=== PATIENT | female | born 2000 | race Caucasian/White ===

== ENCOUNTER 2024-05-07 03:22 | Inpatient (IN) | payer MEDICAID ==
[2024-05-07] MEDS ORDERED: Sodium Chloride 0.9% 20 ML SDV IV PRN (04:08)
[2024-05-07] MEDS ORDERED: Sodium Chloride 0.9% 2.5 ML Syringe FLUSH PRN (04:08)
[2024-05-07] MEDS ORDERED: Lidocaine 1% 50 ML MDV INJECT PRN (04:08)
[2024-05-07] MEDS ORDERED: Carboprost Tromethamine 250 MCG/1 mL Vial IM PRN (04:08)
[2024-05-07] MEDS ORDERED: Misoprostol 200 MCG Tab PO PRN (04:08)
[2024-05-07] MEDS ORDERED: Sodium Chloride 0.9% 10 ML Syringe FLUSH PRN (04:08)
[2024-05-07] MEDS ORDERED: Butorphanol 2 MG/ML SDV IVPUSH PRN (04:08)
[2024-05-07] MEDS ORDERED: Methylergonovine 0.2 MG/1 ML Amp IM PRN ×2 (04:08→12:25)
[2024-05-07] MEDS ORDERED: Water For Irrigation,Sterile 1,000 ML Container IRR PRN (04:08)
[2024-05-07] MEDS ORDERED: Oxytocin/0.9 % Sodium Chloride 30 UNIT/500 ML BAG IV SCH ×2 (04:15→11:00)
[2024-05-07] MEDS: Lactated Ringers 1,000 ML IV SCH (04:37)
[2024-05-07] MEDS: Vancomycin 1.5 GM in Sodium Chloride 0.9% 500 ML IV SCH (05:14)
[2024-05-07 05:38] LABS: HEMATOCRIT 34.8 % (37.0-47.0); MEAN CORPUSCULAR HEMOGLOBIN 29.2 pg (28.0-32.0); MEAN CORPUSCULAR HGB CONC 34.5 g/dL (32.0-36.0); MEAN CORPUSCULAR VOLUME 84.7 fL (83.0-99.0); MEAN PLATELET VOLUME 9.3 fL (9.4-12.3); PLATELET COUNT,PLT 435 K/uL (150-400); RED BLOOD CELL COUNT 4.11 M/uL (4.10-5.30); WHITE BLOOD CELL COUNT,WBC 13.97 K/uL (3.9-11.3)
[2024-05-07] MEDS: valACYclovir 500 MG Tab PO SCH (09:54)
[2024-05-07] MEDS ORDERED: Citric Acid/Sodium Citrate Solution 30 ML Cup PO ONE (10:56)
[2024-05-07] MEDS ORDERED: Azithromycin 500 MG in Sodium Chloride 0.9% 250 ML IV ONE (10:56)
[2024-05-07] MEDS ORDERED: Lactated Ringers 1,000 ML IV SCH ×2 (11:00→12:30)
[2024-05-07] MEDS: Clindamycin Phosphate in D5W 900 MG in Premix Bag 50 BAG IV ONE (11:25)
[2024-05-07] MEDS ORDERED: Ketorolac 30 MG/ML SDV ONE (11:25)
[2024-05-07] MEDS ORDERED: Ondansetron 4 MG/2 ML SDV ONE (11:25)
[2024-05-07] MEDS ORDERED: Bupivacaine 0.25% 30 ML SDV ONE (11:25)
[2024-05-07] MEDS ORDERED: Ropivacaine 0.5% 5 MG/ML 30 ML SDV ONE (11:25)
[2024-05-07] MEDS ORDERED: Oxytocin 10 Units/1 ML SDV ONE (11:25)
[2024-05-07] MEDS ORDERED: fentaNYL 100 MCG/2 ML SDV ONE (11:25)
[2024-05-07] MEDS ORDERED: ceFAZolin 1 GM Vial ONE (11:25)
[2024-05-07] MEDS ORDERED: EPINEPHrine 1 MG/1 ML Amp ONE (11:25)
[2024-05-07] MEDS ORDERED: Morphine PF 10 MG/10 ML SDV ONE (11:26)
[2024-05-07] MEDS ORDERED: Phenylephrine HCl In 0.9% NaCl 1 MG/10 ML Syringe ONE ×2 (11:29→12:00)
[2024-05-07] MEDS ORDERED: Azithromycin 500 MG Vial ONE (11:38)
[2024-05-07] MEDS ORDERED: Ondansetron 4 MG/2 ML SDV IVPUSH PRN ×3 (12:25→12:45)
[2024-05-07] MEDS ORDERED: Lanolin 100% Cream 7 GM Tube TOP PRN (12:25)
[2024-05-07] MEDS ORDERED: Oxytocin 10 Units/1 ML SDV IM PRN (12:25)
[2024-05-07] MEDS ORDERED: Acetaminophen/oxyCODONE 325-5 MG Tab PO PRN (12:25)
[2024-05-07] MEDS ORDERED: diphenhydrAMINE 50 MG/ML SDV IVPUSH PRN ×2 (12:25→12:45)
[2024-05-07] MEDS ORDERED: Bisacodyl 10 MG Supp RECTAL PRN (12:25)
[2024-05-07] MEDS ORDERED: Misoprostol 200 MCG Tab RECTAL PRN (12:25)
[2024-05-07 12:29] LABS: PH,UMBILICAL ARTERIAL 7.221 (7.18-7.38); PH,UMBILICAL VENOUS 7.294 (7.25-7.45)
[2024-05-07] MEDS ORDERED: Nalbuphine 10 MG/1 ML Vial IVPUSH PRN (12:45)
[2024-05-07] MEDS ORDERED: Bupivacaine 0.5% 10 ML SDV INJECT ONE (12:45)
[2024-05-07] MEDS ORDERED: Naloxone 0.4 MG/ML SDV IVPUSH PRN (12:45)
[2024-05-07] MEDS ORDERED: droPERidol 5 MG/2 ML SDV IVPUSH PRN (12:45)
[2024-05-07] MEDS ORDERED: Phenylephrine HCl In 0.9% NaCl 1 MG/10 ML Syringe IVPUSH PRN (12:45)
[2024-05-07] MEDS ORDERED: Metoclopramide 10 MG/2 ML SDV IVPUSH PRN (12:45)
[2024-05-07] MEDS ORDERED: ePHEDrine 50 MG/ML SDV IM PRN (12:45)
[2024-05-07] MEDS ORDERED: HYDROmorphone 1 MG/ML Syringe IVPUSH PRN (12:45)
[2024-05-07] MEDS ORDERED: Morphine 2 MG/ML SYRINGE IVPUSH PRN (12:45)
[2024-05-07] MEDS ORDERED: Albuterol 0.083% 2.5 MG/3 ML Neb Soln NEB PRN (12:45)
[2024-05-07] MEDS ORDERED: fentaNYL 50 MCG/ML SDV IVPUSH PRN (12:45)
[2024-05-07] MEDS ORDERED: fentaNYL 100 MCG/2 ML SDV IVPUSH PRN (12:45)
[2024-05-07] MEDS: Acetaminophen 1,000 MG in Premix Bag 1 BAG IV SCH (13:44)
[2024-05-07] MEDS: Ketorolac 30 MG/ML SDV IVPUSH SCH (13:51)
[2024-05-07] MEDS: Simethicone 80 MG Tab.Chew PO SCH (18:09)
[2024-05-07] MEDS: Docusate Sodium 100 MG Cap PO SCH (20:23)
[2024-05-08 06:01] LABS: HEMATOCRIT 26.6 % (37.0-47.0); HEMOGLOBIN 9.2 g/dL (12.0-16.0)
[2024-05-08] MEDS: VALACYCLOVIR 500 MG PO SCH (09:12)
[2024-05-08] MEDS: Ibuprofen 800 MG Tab PO PRN (11:42)
[2024-05-08] MEDS: Acetaminophen/oxyCODONE 325-5 MG Tab PO PRN (23:26)
[2024-05-09] MEDS: Acetaminophen/oxyCODONE 325-5 MG Tab PO PRN (09:57)
== END 2024-05-09 12:15 | disposition home or self-care (01) | DRG 787 ==
LOC: MW.OBCHECK 03:22 → MW.OB 03:23 → MW.OBCHECK 04:09 → MW.OB 04:09 → OBSVTOIN 11:57 → MW.OB 16:00
PROVIDERS: ADMIT Obstetrics & Gynecology; ATTEND Obstetrics & Gynecology
PROC: 10D00Z1 Extraction of Products of Conception, Low, Open Approach (ICD-10-PCS; principal; 2024-05-07 11:21)
DX: O34.211 Maternal care for low transverse scar from previous cesarean delivery (principal); O98.52 Other viral diseases complicating childbirth; O48.0 Post-term pregnancy; Z37.0 Single live birth; Z3A.40 40 weeks gestation of pregnancy; B00.9 Herpesviral infection, unspecified
CPT/HCPCS: 01961; 36415; 59025; 64488; 82803; 84112; 85014; 85018; 85027; 86592; 86850; 86900; 86901; A9270-GY; J0131; J0171; J0456; J0665; J0690; J0736; J1100; J1885; J2274; J2371; J2405; J2590; J2795; J3010; J7040; J7120